=== PATIENT | female | born 1990 | race Caucasian/White ===

== ENCOUNTER 2016-02-27 14:28 | Emergency (ER) | payer OTHER, MEDICAID ==
[~2016-02-27] VITALS: Ht 154.9 cm; Wt 65.0 kg
[~2016-02-27 14:28] MED LIST: PRENCAP17 PO; ZOFR4TAB3 SL
[2016-02-27 14:29] VITALS: BP 114/80; PULSE 96; RESP 14; TEMP 97.6; O2SAT 98
[2016-06-19] MEDS ORDERED: ZOFR4TAB3 SL (09:13)
== END 2016-02-27 16:50 | disposition left against medical advice (07) ==
LOC: NED 14:28
DX: O26.892 Other specified pregnancy related conditions, second trimester (principal); R10.9 Unspecified abdominal pain; Z3A.14 14 weeks gestation of pregnancy; Z53.21 Procedure and treatment not carried out due to patient leaving prior to being seen by health care provider
CPT/HCPCS: 99281

== ENCOUNTER → 2016-03-13 | Outpatient (CLI) | payer OTHER, MEDICAID ==
[~2016-03-13] MED LIST changes: +IBUP-232 PO; +PERI8.6T PO
== END ==
LOC: HPND 08:46
PROVIDERS: ATTEND Obstetrics & Gynecology Obstetrics
DX: O26.892 Other specified pregnancy related conditions, second trimester (principal); Z36 Encounter for antenatal screening of mother; R19.03 Right lower quadrant abdominal swelling, mass and lump; R19.04 Left lower quadrant abdominal swelling, mass and lump; Z3A.16 16 weeks gestation of pregnancy
CPT/HCPCS: 76811

== ENCOUNTER → 2016-04-10 | Outpatient (CLI) | payer OTHER, MEDICAID | LOC: HPND 10:21 | PROVIDERS: ATTEND Obstetrics & Gynecology | DX: O26.891 Other specified pregnancy related conditions, first trimester (principal); R19.03 Right lower quadrant abdominal swelling, mass and lump; R19.04 Left lower quadrant abdominal swelling, mass and lump; Z3A.20 20 weeks gestation of pregnancy | CPT/HCPCS: 76816 ==

== ENCOUNTER 2016-04-26 17:37 | Emergency (ER) | payer OTHER, MEDICAID ==
[~2016-04-26 17:37] MED LIST changes: -IBUP-232 PO; -PERI8.6T PO
[2016-04-26 17:40] VITALS: BP 134/79; PULSE 126; RESP 20; TEMP 97.7; O2SAT 98
[2016-06-19] MEDS ORDERED: ZOFR4TAB3 SL (09:13)
== END 2016-04-26 18:40 | disposition left against medical advice (07) ==
LOC: NEPB 17:37
DX: O26.92 Pregnancy related conditions, unspecified, second trimester (principal); M79.605 Pain in left leg; Z3A.00 Weeks of gestation of pregnancy not specified
CPT/HCPCS: 99281

== ENCOUNTER → 2016-05-09 | Outpatient (CLI) | payer OTHER, MEDICAID ==
[~2016-05-09] MED LIST changes: +IBUP-232 PO; +PERI8.6T PO
== END ==
LOC: HPND 08:43
PROVIDERS: ATTEND Obstetrics & Gynecology
DX: O26.892 Other specified pregnancy related conditions, second trimester (principal); R19.03 Right lower quadrant abdominal swelling, mass and lump; R19.04 Left lower quadrant abdominal swelling, mass and lump
CPT/HCPCS: 76816

== ENCOUNTER → 2016-06-13 | Outpatient (CLI) | payer OTHER, MEDICAID | LOC: HPND 12:58 | PROVIDERS: ATTEND Obstetrics & Gynecology | DX: O26.893 Other specified pregnancy related conditions, third trimester (principal); R19.03 Right lower quadrant abdominal swelling, mass and lump; R19.04 Left lower quadrant abdominal swelling, mass and lump; Z3A.29 29 weeks gestation of pregnancy | CPT/HCPCS: 76816 ==

== ENCOUNTER 2016-06-30 13:24 | Emergency (ER) | payer OTHER ==
[~2016-06-30 13:24] MED LIST changes: -IBUP-232 PO; -PERI8.6T PO
--- NOTE | 2016-06-30 14:18 | PD ---
HPI Chief Complaint Leaking fluid Date Seen: June 30, 2016 Travel History International Travel<30 Days: No Contact w/Intl Traveler<30Days: No History of Present Illness HPI This patient is 25-year-old white female at 32 weeks presents complaining of gush of fluid per vagina. She's had no further leakage. No bleeding or contractions. She has had some discomfort however and numbness and her abdomen. heart rate tracing is reactive and no contractions noted. Amnio sure is negative today. Para: 1 : 2 History Obstetric History Obstetric History One vaginal delivery Social History Alcohol Use: No Tobacco Use: No Substance Abuse: No Allergies-Medications (Allergen,Severity, Reaction): Coded Allergies: Bee Sting (Verified Allergy, Severe, Anaphylaxis, 06/19/16) Tramadol (Verified Allergy, Severe, 06/19/16) "MAKES ME FEEL LIKE I'M GOING CRAZY" Uncoded Allergies: UNKNOWN ANTIBIOTIC (Adverse Reaction, Intermediate, BIZARRE BEHAVIOR, ) antibiotic (Adverse Reaction, Mild, rash, 08/12/12) Home Meds Active Scripts Ondansetron Odt (Zofran Odt)4 Mg Tab4 Mg SL Q8HR PRN (Nausea/Vomiting) #30 TAB Ref 0 Prov:Yael Umaña CNM [facility] 06/19/16 Without A W/ Fe Carbo (Prenate Mini 29-0.6-0.4-350 mg)1 Cap Cap1 Tab PO DAILY #30 BOTTLE Ref 11 Prov:Maria Luz Wells [facility] 01/04/16 W/O Vit A W/ Fe Carbo (Prenate Mini 18-0.6-0.4-350 mg)1 Cap Cap Sample #2 Prov:Maria Luz Wells [facility] 01/04/16 Physical Exam Narrative GENERAL: Well-nourished, well-developed patient. SKIN: Warm and dry. HEAD: Normocephalic and atraumatic. EYES: No scleral icterus. No injection or drainage. ENT: No nasal drainage noted. Mucous membranes pink. Airway patent. NECK: Supple, trachea midline. No JVD. CARDIOVASCULAR: Regular rate and rhythm without murmurs, gallops, or rubs. RESPIRATORY: Breath sounds equal bilaterally. No accessory muscle use. BREASTS: Bilateral exam showed no masses , no retractions, no nipple discharge. ABDOMEN/GI: Abdomen soft, non-tender, bowel sounds present, no rebound, no guarding Gravid to [32-] weeks size Fundal Height: [-32] GENITOURINARY: External Genitalia: intact and normal in appearance BUS glands: [-] Cervix: [-] Dilatation: [-Closed] Effacement: [-] Thick Station: [-3] Membranes: [intact ] amnio sure negative Uterine Contractions: [None-] FHT's: Category: [1-] Baseline: [133-] Reactive: [yes-] Variability: [-mod] Decels: [-none] EXTREMITIES: No cyanosis or edema. BACK: Nontender without obvious deformity. No CVA tenderness. NEUROLOGICAL: Awake and alert. Motor and sensory grossly within normal limits. Five out of 5 muscle strength in all muscle groups. Normal speech. Data Data Labs Amnio sure negative MDM Interpretation(s) Patient is a 26-year-old white female at 32 weeks [facility], who presents thinking her water may have leaked, she's had no further leakage after a fairly large amount noted home today. Amnio sure is negative now so quite likely this was urine event. There is no bleeding or contractions heart rate tracing is reactive. Plan Plan to discharge home for the patient to observe her condition and once going on as a problem then return for repeat evaluation otherwise see her OB provider as scheduled Diagnosis Diagnosis: Primary Impression: No leakage of amniotic fluid into vagina Disposition: 01 DISCHARGE HOME Condition: Stable Javi Dick II, MD June 30, 2016 14:18
== END 2016-06-30 14:22 | disposition home or self-care (01) ==
LOC: HOBED 13:24
DX: O26.893 Other specified pregnancy related conditions, third trimester (principal); Z3A.32 32 weeks gestation of pregnancy
CPT/HCPCS: 84112; 99284

== ENCOUNTER → 2016-07-11 | Outpatient (CLI) | payer MEDICAID, OTHER ==
[~2016-07-11] MED LIST changes: +IBUP-232 PO; +PERI8.6T PO
== END ==
LOC: HPND 14:32
PROVIDERS: ATTEND Obstetrics & Gynecology
DX: O26.893 Other specified pregnancy related conditions, third trimester (principal); R19.03 Right lower quadrant abdominal swelling, mass and lump; R19.04 Left lower quadrant abdominal swelling, mass and lump; Z3A.33 33 weeks gestation of pregnancy
CPT/HCPCS: 76816

== ENCOUNTER 2016-08-18 08:28 | Inpatient (IN) | payer OTHER ==
[2016-08-18] VITALS (32 sets, daily range): BP systolic 88–139; BP diastolic 49–98; PULSE 67–160; RESP 18; TEMP 97.6–99
[~2016-08-18 08:28] MED LIST changes: -IBUP-232 PO; -PERI8.6T PO; -PRENCAP17 PO
[2016-08-18] MEDS ORDERED: LACTATED RINGER'S 1000 ML INJ 1,000 ML IV SCH (09:13)
[2016-08-18] MEDS ORDERED: LACTATED RINGER'S 1000 ML INJ 1,000 ML IV PRN (09:13)
[2016-08-18] MEDS ORDERED: CITRIC ACID-SODIUM CITRATE LIQ 30 ML UDC PO SCH (09:15)
[2016-08-18] MEDS ORDERED: LIDOCAINE HCL 1% 50 ML VIAL INFIL PRN (09:15)
[2016-08-18] MEDS ORDERED: SODIUM CHLORID 0.9% 500 ML INJ 500 ML IV PRN (09:15)
[2016-08-18] MEDS ORDERED: OXYTOCIN 30 UNITS-500ML PREMIX 500 ML IV ONE (09:15)
[2016-08-18] MEDS ORDERED: MINERAL OIL 10 ML VIAL TOPICAL PRN (09:15)
[2016-08-18] MEDS ORDERED: LIDOCAINE HCL 1% 50 ML VIAL I-DERMAL PRN (09:15)
--- NOTE | 2016-08-18 09:15 | HHI.HP ---
History & Physical H&P HPI HPI Chief Complaint Contractions and rupture membranes Date Seen: Aug 18, 2016 Time Seen: 09:06 Travel History International Travel<30 Days: No Contact w/Intl Traveler<30Days: No Known Affected Area: No History of Present Illness HPI 26 year old female who is at 39 weeks 1 day comes in complaining of a gush of fluid at 1:00 in the morning. Patient denied contractions until about hour ago when some mild contractions occurred the patient states that they are irregular in frequency and minimally painful. Group B strep is negative. Patient was 2-3 cm yesterday on exam she had membrane stripping Para: 1 : 3 Miscarriage: 1 History (Limited) History Past Medical History Narrative Medical Asthma using inhalers Obstetric History Obstetric History Spontaneous vaginal delivery 8 lbs. 9 oz. Past Surgical History Surgical History: No Previous Surgery Family History Family History: Negative Social History Alcohol Use: No Tobacco Use: No Substance Abuse: No Allergies-Medications Allergies-Medications (Allergen,Severity, Reaction): Coded Allergies: Bee Sting (Verified Allergy, Severe, Anaphylaxis, 08/17/16) Tramadol (Verified Allergy, Severe, 08/17/16) "MAKES ME FEEL LIKE I'M GOING CRAZY" Uncoded Allergies: UNKNOWN ANTIBIOTIC (Adverse Reaction, Intermediate, BIZARRE BEHAVIOR, ) antibiotic (Adverse Reaction, Mild, rash, 08/12/12) Home Meds Active Scripts Ondansetron Odt (Zofran Odt)4 Mg Tab4 Mg SL Q8HR PRN (Nausea/Vomiting) #30 TAB Ref 0 Prov:Yael Umaña CNM [facility] 06/19/16 W/O Vit A W/ Fe Carbo (Prenate Mini 18-0.6-0.4-350 mg)1 Cap Cap Sample #2 Prov:Maria Luz WellsP 01/04/16 ROS Review of Systems Except as stated in HPI: all other systems reviewed are Neg Physical Exam Physical Exam Narrative GENERAL: Well-nourished, well-developed patient. SKIN: Warm and dry. HEAD: Normocephalic and atraumatic. EYES: No scleral icterus. No injection or drainage. ENT: No nasal drainage noted. Mucous membranes pink. Airway patent. NECK: Supple, trachea midline. No JVD. CARDIOVASCULAR: Regular rate and rhythm without murmurs, gallops, or rubs. RESPIRATORY: Breath sounds equal bilaterally. No accessory muscle use. BREASTS: Bilateral exam showed no masses , no retractions, no nipple discharge. ABDOMEN/GI: Abdomen soft, non-tender, bowel sounds present, no rebound, no guarding Gravid to [-38] weeks size Fundal Height: [-] GENITOURINARY: External Genitalia: intact and normal in appearance BUS glands: [-Normal she ruptured with clear fluid] Cervix: [Posterior-] Dilatation: [-2-3] Effacement: [80] Station: [-3-] Presentation: [-Vertex] Membranes: Obviously ruptured with clear fluid Uterine Contractions: [Irregular-] FHT's: Category: [-1] Baseline: [-140] Reactive: mod Variability: mod Decels: absent EXTREMITIES: No cyanosis or edema. BACK: Nontender without obvious deformity. No CVA tenderness. NEUROLOGICAL: Awake and alert. Motor and sensory grossly within normal limits. Five out of 5 muscle strength in all muscle groups. Normal speech. Data Data Data Vital Signs Reviewed: Yes MDM MDM Plan 26 show who is at 39 weeks and 1 day with grossly ruptured membranes Group B strep negative Admit for labor patient may need augmentation with Pitocin Diagnosis Diagnosis: Primary Impression: 39 weeks gestation of Additional Impressions: Rupture of membranes with clear amniotic fluid Asthma affecting , antepartum Sarah Millard MD Aug 18, 2016 09:15
[2016-08-18] MEDS ORDERED: SODIUM CHLOR 0.9% 1000 ML INJ 1,000 ML IV PRN (09:33)
[2016-08-18 09:44] LABS: AUTOMATED NEUTROPHIL # 4.6 TH/MM3 (1.8-7.7); BASOPHIL # 0.1 TH/MM3 (0-0.2); BASOPHIL % 0.9 % (0.0-2.0); EOSINOPHIL # 0.6 TH/MM3 (0-0.4); EOSINOPHIL % 6.8 % (0.0-4.0); HEMATOCRIT 36.3 % (35.0-46.0); HEMO FLAGS DIFF FINAL; LYMPH % 28.2 % (9.0-44.0); LYMPHOCYTE # 2.3 TH/MM3 (1.0-4.8); MEAN CELL VOLUME 82.7 FL (80.0-100.0); MEAN CORPUSCULAR HEMOGLOBIN 28.2 PG (27.0-34.0); MEAN CORPUSCULAR HGB CONC 34.1 % (32.0-36.0); MONO % 6.7 % (0.0-8.0); NEUT % 57.4 % (16.0-70.0); PLATELET COUNT 218 TH/MM3 (150-450); RED BLOOD COUNT 4.39 MIL/MM3 (4.00-5.30); RED CELL DISTRIBUTION WIDTH 14.7 % (11.6-17.2); WHITE BLOOD COUNT 8.1 TH/MM3 (4.0-11.0)
[2016-08-18 09:51] LABS: BACTERIA, URINE RARE /hpf; BLOOD, URINE NEG (NEG); COMMENT (UR) CATH-CULTURE IND; CULTURE IF INDICATED CATH CULTURE IND; GLUCOSE,URINE NEG (NEG); KETONE, URINE NEG (NEG); MUCUS URINE FEW /lpf (OCC); NITRITE,URINE NEG (NEG); SQUAMOUS EPITHELIAL CELL URINE 2 /hpf (0-5); URINE COLOR YELLOW (YELLW/STRAW)
[2016-08-18] MEDS ORDERED: OXYTOCIN 30 UNITS-500ML PREMIX 500 ML IV SCH (10:45)
[2016-08-18] MEDS ORDERED: fentaNYL 2MCG-BUPIV 0.125% INJ 100 ML ONE (14:13)
[2016-08-18] MEDS ORDERED: fentaNYL 2MCG-BUPIV 0.125% 100 ML EPIDURAL SCH (15:00)
[2016-08-18] MEDS ORDERED: DO NOT ADMINISTER ANTICOAGULANTS PRN (15:00)
[2016-08-18] MEDS ORDERED: NO SYSTEM NARCOTICS PRN (15:00)
[2016-08-18] MEDS ORDERED: ePHEDrine/NS 25 MG/5 ML SYR IV PRN (15:00)
--- NOTE | 2016-08-18 16:38 | PD.LABORPN ---
Subjective Subjective This is a 26y/o at 39w1d who was admitted this morning with PROM since 99. Oxytocin was started at 1030a and she received an epidural at 230p. Pt is doing well, resting comfortably in bed. Objective Vital Signs Vital Signs Date Time Temp Pulse Resp B/P Pulse Ox O2 Delivery O2 Flow Rate FiO2 08/18/16 16:00 77 121/78 08/18/16 15:30 76 120/83 08/18/16 15:00 89 115/72 08/18/16 15:00 83 08/18/16 14:55 79 08/18/16 14:55 86 116/66 08/18/16 14:50 86 126/73 08/18/16 14:46 85 107/68 08/18/16 14:45 87 08/18/16 14:43 98.2 18 08/18/16 14:40 130 08/18/16 14:40 95 126/91 08/18/16 14:37 90 126/98 08/18/16 14:30 93 08/18/16 14:13 18 08/18/16 13:48 89 122/75 08/18/16 12:20 97.6 18 08/18/16 12:19 90 113/73 08/18/16 11:15 74 105/49 08/18/16 10:44 67 101/54 08/18/16 10:44 18 08/18/16 10:44 98.0 Objective Pelvic Exam: Cervix:7/70/-1 Membranes: Ruptured Uterine Contractions: q 2-3 minutes apart FHT's: Category: 1 Decels: occasional variables Assessment/Plan Problem List: (1) Rupture of membranes with clear amniotic fluid Assessment and Plan This is a 26y/o at 39w1d who was admitted this morning with PROM since 99. Oxytocin was started at 1030a and she received an epidural at 230p. -reassuring status -anticipate -continue oxytocin -if no cervical change in 2 hours consider IUPC Jessie Marvin MD Aug 18, 2016 16:38
[2016-08-18] MEDS ORDERED: ACETAMINOPHEN 325 MG TAB PO PRN (19:45)
[2016-08-18] MEDS ORDERED: ZOLPIDEM TARTRATE 5 MG TAB PO PRN (19:45)
[2016-08-18] MEDS ORDERED: ONDANSETRON ODT 4 MG TAB PO PRN (19:45)
[2016-08-18] MEDS ORDERED: BENZOCAINE 20% TOPICAL SPRAY 60 ML CAN TOPICAL PRN (19:45)
[2016-08-18] MEDS ORDERED: ALUMINUM/MAGNESIUM/SIMETH 30 ML CUP PO PRN (19:45)
[2016-08-18] MEDS ORDERED: DOCUSATE SODIUM 50 MG/SENNA 8.6 MG TAB PO PRN (19:45)
[2016-08-18] MEDS ORDERED: WITCH HAZEL 50%/GLYCERIN 12.5% 40 PAD JAR TOPICAL PRN (19:45)
--- NOTE | 2016-08-18 20:33 | PD.OB.DELI ---
Delivery Date: Aug 18, 2016 Anesthesia: Epidural Episiotomy: None Vaginal Delivery: Normal Presentation: Occiput anterior Nuchal Cord: None Delayed cord clamping (45 sec): No : Female One Minute : 9 Five Minute : 9 Weight: 3655 Placenta: Spontaneous delivery Laceration: 1 deg (periuretheral), 2 deg (left labial) Repair: Chromic interrupted, Chromic running Additional Information This is a 26y/o at 39w1d who presented to the [facility] with c/o leakage of fluid at 0100. Her contractions were spaced out and oxytocin was started at 1030a. She received an epidural at 2:30p. She pushed very effectively and the head was delivered atraumatically. The body was delivered atraumatically and a vigorous female infant was delivered. The was placed on the maternal abdomen. The cord was clamped and cut soon after delivery due to poor tone. The vagina was examined and a 1st degree periuretheral and 2nd degree left labial lacerations were noted which were repaired with 2-0/3-0 chromic. The placenta was delivered spontaneously and noted to be intact. The lacerations were noted to be hemostatic. Bleeding was minimal. All sponge/lap/instruments were accounted for. Jessie Marvin MD Aug 18, 2016 20:33
[2016-08-18] MEDS: IBUPROFEN 600 MG TAB PO PRN (21:46)
[2016-08-19] MEDS: IBUPROFEN 600 MG TAB PO PRN ×3 (06:10→19:37)
[2016-08-19 07:45] VITALS: BP 106/72; PULSE 81; RESP 18; TEMP 97.6
--- NOTE | 2016-08-19 07:52 | HHI.OB ---
Subjective Post Day: 1 Remarks Patient is doing well this morning. She is ambulating and voiding without difficulty. Pain is controlled with medication. Her vaginal bleeding is slightly improved. She plans on breast-feeding. Denies fever, chills, nausea, vomiting, shortness of breath. (Brando Smith MD R2) Objective Vitals/I&O Vital Signs Date Time Temp Pulse Resp B/P Pulse Ox O2 Delivery O2 Flow Rate FiO2 08/18/16 22:00 99.0 08/18/16 22:00 78 18 113/72 08/18/16 20:44 18 08/18/16 20:30 106 119/64 08/18/16 20:15 18 08/18/16 20:00 89 117/63 08/18/16 19:45 18 08/18/16 19:31 160 129/77 08/18/16 19:15 98.2 08/18/16 19:15 18 08/18/16 19:14 152 115/67 08/18/16 19:01 127 90/56 08/18/16 18:31 125 139/96 08/18/16 18:00 100 129/83 08/18/16 17:30 80 115/74 08/18/16 17:15 98.1 08/18/16 17:01 68 100/56 08/18/16 16:30 71 88/52 08/18/16 16:00 77 121/78 08/18/16 15:30 76 120/83 08/18/16 15:00 89 115/72 08/18/16 15:00 83 08/18/16 14:55 79 08/18/16 14:55 86 116/66 08/18/16 14:50 86 126/73 08/18/16 14:46 85 107/68 08/18/16 14:45 87 08/18/16 14:43 98.2 18 08/18/16 14:40 130 08/18/16 14:40 95 126/91 08/18/16 14:37 90 126/98 08/18/16 14:30 93 08/18/16 14:13 18 08/18/16 13:48 89 122/75 08/18/16 12:20 97.6 18 08/18/16 12:19 90 113/73 08/18/16 11:15 74 105/49 08/18/16 10:44 67 101/54 08/18/16 10:44 18 08/18/16 10:44 98.0 Objective Remarks GENERAL: Well-nourished, well-developed patient. CARDIOVASCULAR: Regular rate and rhythm without murmurs, gallops, or rubs. RESPIRATORY: Breath sounds equal bilaterally. No accessory muscle use. ABDOMEN/GI: Abdomen soft, non-tender. Fundus: Firm, non-tender at umbilicus. GENITOURINARY: Light to moderate bleeding. EXTREMITIES: No cyanosis or edema, non-tender, without signs of DVT. Medications and IVs Current Medications Medications (Trade) Dose Ordered Sig/Bhanu Route Start Time Stop Time Status Last Admin Lactated Ringer's 1,000 ml @ 125 mls/hr Q8H IV 08/18/16 09:13 08/18/16 10:46 Lactated Ringer's 1,000 ml @ 3,000 mls/hr Q20M PRN IV 08/18/16 09:13 08/18/16 15:08 Sodium Chloride 500 ml @ 1,000 mls/hr ONCE PRN IV 08/18/16 09:15 (NS 1000 ml Inj) 1,000 ml @ 100 mls/hr Q10H PRN IV 08/18/16 09:33 (fentaNYL INJ) 50 mcg Q1H PRN IV PUSH 08/18/16 09:15 (fentaNYL INJ) 100 mcg Q1H PRN IV PUSH 08/18/16 09:15 Mineral Oil 10 ml 10 ml UNSCH PRN TOPICAL 08/18/16 09:15 (Pitocin 30 Units-NS 500 ml Premix) 500 ml @ 0 mls/hr TITRATE IV 08/18/16 10:45 08/18/16 15:07 Miscellaneous Information No systemic narcotics to be given except... UNSCH PRN .XX 08/18/16 15:00 08/19/16 14:59 Miscellaneous Information DO NOT ADMINISTER ANY ANTICOAGUL... UNSCH PRN .XX 08/18/16 15:00 08/19/16 14:59 (fentaNYL 2MCG-BUPIV 0.125% INJ) 100 ml @ 0 mls/hr TITRATE EPIDURAL 08/18/16 15:00 (ePHEDrine/NS 25 MG/5 ML SYR) 10 mg UNSCH PRN IV 08/18/16 15:00 08/19/16 14:59 (Tylenol) 650 mg Q4H PRN PO 08/18/16 19:45 (Motrin) 600 mg Q6H PRN PO 08/18/16 19:45 08/19/16 06:10 (Percocet 5-325 Mg) 1 tab Q4H PRN PO 08/18/16 19:45 (Americaine 20% Top Spr) 1 spray Q4H PRN TOPICAL 08/18/16 19:45 08/18/16 21:44 (Tucks Pads) 1 applic QID PRN TOPICAL 08/18/16 19:45 08/18/16 21:44 (Marcie-Colace) 2 tab Q12H PRN PO 08/18/16 19:45 (Ambien) 5 mg HS PRN PO 08/18/16 19:45 (Mag-Al Plus Susp Liq) 15 ml Q8H PRN PO 08/18/16 19:45 (Zofran Odt) 4 mg Q6H PRN PO 08/18/16 19:45 (Brando Smith MD R2) Assessment/Plan Problem List: (1) Vaginal delivery Assessment and Plan 26 year old G 3 P2 PPD1 1. Care - AFVSS since delivery - Motrin prn pain - Encouraged OOB, as tolerated - Pelvic rest x 6 weeks - Will f/u with PCP in 4-6 weeks - Anticipate d/c tomorrow Discharge Planning Likely tomorrow (Brando Smith MD R2) Attending Attestation Agree with above. D/c home tomorrow. (Jessie Marvin MD) Brando Smith MD R2 Aug 19, 2016 07:52 Jessie Marvin MD Aug 19, 2016 09:32
[2016-08-19] MEDS: oxyCODONE/ACETAMINOPHEN 5 MG/325 MG TAB PO PRN ×2 (12:18→19:37)
[2016-08-19 19:35] VITALS: BP 113/64; PULSE 72; RESP 16; TEMP 97.9
[2016-08-20] MEDS: IBUPROFEN 600 MG TAB PO PRN (03:47)
[2016-08-20] MEDS ORDERED: IBUP-232 PO (06:25)
[2016-08-20] MEDS ORDERED: PERI8.6T PO (06:25)
--- NOTE | 2016-08-20 06:25 | HHI.DCPOC ---
Discharge Care Plan Diagnosis: (1) Vaginal delivery Report Symptoms to Your Doctor -Temperature above 100.5 degrees -Redness, of incision or excessive or foul smelling drainage -Unusual pain or calf pain -Increased vaginal bleeding -Painful or difficulty urinating -Feelings of extreme sadness or anxiety after 2 weeks Goals to Promote Your Health * To prevent worsening of your condition and complications * To maintain your health at the optimal level Directions to Meet Your Goals Take your medications as prescribed Follow your dietary instruction Follow activity as directed Ensure plenty of rest for recovery Drink fluids for hydration Keep your appointments as scheduled Take your immunizations and boosters as scheduled If your symptoms worsen call your PCP, if no PCP go to Urgent Care Center or Emergency Room Smoking is Dangerous to Your Health. Avoid second hand smoke Call the 24-hour crisis hotline for domestic abuse at Gale Ruiz MD R2 Aug 20, 2016 06:25
--- NOTE | 2016-08-20 06:29 | HHI.OB ---
Subjective Remarks No acute issues overnight. Vitals are stable, patient remains afebrile. Vaginal bleeding is decreasing and pain is well-controlled. She is ambulating without difficulty, voiding and stooling. She denies any chest pain, shortness of breath, or leg pain. She is bonding well with infant. Objective Vitals/I&O Vital Signs Date Time Temp Pulse Resp B/P Pulse Ox O2 Delivery O2 Flow Rate FiO2 08/19/16 19:35 97.9 72 16 113/64 08/19/16 07:45 97.6 81 18 106/72 Objective Remarks GENERAL: Well-nourished, well-developed patient. CARDIOVASCULAR: Regular rate and rhythm without murmurs, gallops, or rubs. RESPIRATORY: Breath sounds equal bilaterally. No accessory muscle use. ABDOMEN/GI: Abdomen soft, non-tender. Fundus: Firm, non-tender at umbilicus. GENITOURINARY: Light to moderate bleeding. EXTREMITIES: No cyanosis or edema, non-tender, without signs of DVT. Medications and IVs Current Medications Medications (Trade) Dose Ordered Sig/Bhanu Route Start Time Stop Time Status Last Admin Lactated Ringer's 1,000 ml @ 125 mls/hr Q8H IV 08/18/16 09:13 08/18/16 10:46 Lactated Ringer's 1,000 ml @ 3,000 mls/hr Q20M PRN IV 08/18/16 09:13 08/18/16 15:08 Sodium Chloride 500 ml @ 1,000 mls/hr ONCE PRN IV 08/18/16 09:15 (NS 1000 ml Inj) 1,000 ml @ 100 mls/hr Q10H PRN IV 08/18/16 09:33 (fentaNYL INJ) 50 mcg Q1H PRN IV PUSH 08/18/16 09:15 (fentaNYL INJ) 100 mcg Q1H PRN IV PUSH 08/18/16 09:15 Mineral Oil 10 ml 10 ml UNSCH PRN TOPICAL 08/18/16 09:15 Oxytocin 500 ml @ 0 mls/hr TITRATE IV 08/18/16 10:45 08/18/16 15:07 (fentaNYL 2MCG-BUPIV 0.125% INJ) 100 ml @ 0 mls/hr TITRATE EPIDURAL 08/18/16 15:00 (Tylenol) 650 mg Q4H PRN PO 08/18/16 19:45 08/20/16 03:46 (Motrin) 600 mg Q6H PRN PO 08/18/16 19:45 08/20/16 03:47 (Percocet 5-325 Mg) 1 tab Q4H PRN PO 08/18/16 19:45 08/19/16 19:37 (Americaine 20% Top Spr) 1 spray Q4H PRN TOPICAL 08/18/16 19:45 08/18/16 21:44 (Tucks Pads) 1 applic QID PRN TOPICAL 08/18/16 19:45 08/18/16 21:44 (Marcie-Colace) 2 tab Q12H PRN PO 08/18/16 19:45 (Ambien) 5 mg HS PRN PO 08/18/16 19:45 (Mag-Al Plus Susp Liq) 15 ml Q8H PRN PO 08/18/16 19:45 (Zofran Odt) 4 mg Q6H PRN PO 08/18/16 19:45 Assessment/Plan Problem List: (1) Vaginal delivery Assessment and Plan 26 y/o female who is PPD# 2 s/p . -Continue routine care. -Percocet and Motrin PRN pain. -Encouraged OOB. Advised pelvic rest for 6 wks. -Re: ctrl, she would like a tubal ligation. -Discharge home today. Gale Blake Dr[address] MD R2 Aug 20, 2016 06:28
[2016-08-20 07:50] VITALS: BP 106/77; PULSE 60; RESP 16; TEMP 97.9
== END 2016-08-20 13:00 | disposition home or self-care (01) | DRG 775 ==
LOC: HOBED 08:28 → H2EA 09:16 → H1EA 21:37
PROVIDERS: ADMIT Obstetrics & Gynecology Obstetrics; ATTEND Obstetrics & Gynecology Obstetrics
PROC: 10E0XZZ Delivery of Products of Conception, External Approach (ICD-10-PCS; principal; 2016-08-18)
PROC: 0UQMXZZ Repair Vulva, External Approach (ICD-10-PCS; 2016-08-18)
PROC: 0KQM0ZZ Repair Perineum Muscle, Open Approach (ICD-10-PCS; 2016-08-18)
PROC: 00HU33Z Insertion of Infusion Device into Spinal Canal, Percutaneous Approach (ICD-10-PCS; 2016-08-18)
PROC: 3E0R3CZ (ICD-10-PCS; 2016-08-18)
DX: O42.02 Full-term premature rupture of membranes, onset of labor within 24 hours of rupture (principal); J45.909 Unspecified asthma, uncomplicated; O99.52 Diseases of the respiratory system complicating childbirth; Z37.0 Single live birth; Z3A.39 39 weeks gestation of pregnancy; O70.1 Second degree perineal laceration during delivery; O71.82 Other specified trauma to perineum and vulva
CPT/HCPCS: 59025; 81001; 85025; 87086; J2590; J7120